=== PATIENT | male | born 1960 | race African-American/Black ===

== ENCOUNTER 2023-12-03 08:52 | Outpatient (CLI) | payer OTHER, SELFPAY ==
[2023-12-03] MEDS: PERFLUTREN LIPID MICROSPHERES 2 ML VIAL IV (15:37)
== END 2023-12-03 08:53 | disposition home or self-care (01) ==
LOC: RAD 08:53
PROVIDERS: PCP Chiropractor; Visit Provider Chiropractor
DX: I50.9 Heart failure, unspecified (principal); E11.9 Type 2 diabetes mellitus without complications
CPT/HCPCS: 93306; Q9957